=== PATIENT | male | born 1990 | race Caucasian/White ===

== ENCOUNTER 2017-06-30 17:50 | Observation (INO) | payer SELFPAY ==
[2017-06-30] VITALS (7 sets, daily range): BP systolic 99–113; BP diastolic 44–63; PULSE 50–63; TEMP 97.9–98.8
[~2017-06-30] VITALS: Ht 167.6 cm; Wt 63.6 kg
[2017-07-01 01:47] VITALS: BP 109/50; PULSE 69; TEMP 98.5
[2017-07-01 05:09] VITALS: BP 108/45; PULSE 56; TEMP 98.3
[2017-07-01 09:57] VITALS: BP 102/47; PULSE 56; TEMP 98.1
== END 2017-07-01 12:56 | disposition home or self-care (01) ==
LOC: SURG 17:50
DX: K35.80 Unspecified acute appendicitis (principal)
CPT/HCPCS: G0378; G0379; J0171; J0330; J0690; J1170; J1885; J2250; J2543; J2704; J2710; J3010; J7120

== ENCOUNTER 2021-08-23 08:45 | Emergency (ER) | payer SELFPAY ==
[~2021-08-23] VITALS: Ht 175.3 cm; Wt 79.5 kg
[2021-08-23 08:50] VITALS: BP 132/72; TEMP 97.5
[2021-08-23] MEDS ORDERED: VALIUM 10MG10 MG/TAB PO (10:17)
[2021-08-23 10:45] VITALS: PULSE 94
== END 2021-08-23 10:45 | disposition home or self-care (01) ==
LOC: COL.ER 08:45
DX: S39.012A Strain of muscle, fascia and tendon of lower back, initial encounter (principal); F17.200 Nicotine dependence, unspecified, uncomplicated; X50.1XXA Overexertion from prolonged static or awkward postures, initial encounter; Y92.59 Other trade areas as the place of occurrence of the external cause; Y99.0 Civilian activity done for income or pay

== ENCOUNTER → 2021-12-08 | Outpatient (CLI) | payer SELFPAY ==
[~2021-12-08] MED LIST: VALIUM 10MG10 MG/TAB PO
== END ==
LOC: COL.RAD 14:45
DX: M25.551 Pain in right hip (principal); M54.50 Low back pain, unspecified

== ENCOUNTER 2023-05-16 13:33 | Emergency (ER) | payer SELFPAY ==
[2023-05-16 13:35] VITALS: TEMP 98.5
[2023-05-16] MEDS ORDERED: NORCO 325 MG-51 TAB PO (14:48)
[2023-05-16] MEDS ORDERED: PERCOCET 325 MG1 TA2 PO (15:16)
[2023-05-16 15:48] VITALS: BP 121/71; PULSE 80
== END 2023-05-16 15:49 | disposition home or self-care (01) ==
LOC: COL.ER 13:33
DX: S92.001A Unspecified fracture of right calcaneus, initial encounter for closed fracture (principal); S82.301A Unspecified fracture of lower end of right tibia, initial encounter for closed fracture; W11.XXXA Fall on and from ladder, initial encounter; Y92.59 Other trade areas as the place of occurrence of the external cause; Y99.0 Civilian activity done for income or pay
CPT/HCPCS: J1170; J2270